=== PATIENT | female | born 1985 | race Hispanic/Latino ===

== ENCOUNTER 2022-01-15 08:38 | Inpatient (IN) | payer OTHER ==
[~2022-01-15] VITALS: Ht 162.6 cm; Wt 83.9 kg
[2022-01-15 09:25] LABS: APPEARANCE,URINE CLEAR (CLEAR); BILIRUBIN,URINE NEGATIVE (NEGATIVE); COLOR,URINE YELLOW (YELLOW); GLUCOSE, URINE (UA) NEGATIVE (NEGATIVE); KETONES,URINE NEGATIVE (NEGATIVE); LEUKOCYTE ESTERASE ,URINE TRACE (NEGATIVE); NITRATE,URINE NEGATIVE (NEGATIVE); OCCULT BLOOD,URINE NEGATIVE (NEGATIVE); PROTEIN,URINE NEGATIVE (NEGATIVE); UROBILINOGEN,URINE 0.2 mg/dL (0.2-1.0)
[2022-01-15] MEDS ORDERED: LACTATED RINGERS 1000ML IV SCH (09:30)
[2022-01-15 09:38] LABS: AMPHET/METH SCREEN,URINE NEGATIVE (NEGATIVE); BARBITURATE SCREEN, URINE NEGATIVE (NEGATIVE); BENZODIAZEPINES SCREEN,URINE NEGATIVE (NEGATIVE); CANNABINOID SCREEN,URINE NEGATIVE (NEGATIVE); COCAINE SCREEN,URINE NEGATIVE (NEGATIVE); PHENCYCLIDINE SCREEN,URINE NEGATIVE (NEGATIVE)
[2022-01-15 09:45] LABS: BACTERIA,URINE Rare /HPF (None Seen); RBC,URINE 0-1 /HPF (0-1); SQUAMOUS EPITHELIAL CELL,UR Rare /HPF (0-2)
[2022-01-15 09:54] LABS: HEMATOCRIT 34.9 % (36-48); MEAN CORPUSCULAR HEMOGLOBIN 30.5 pg (27.0-33.0); MEAN CORPUSCULAR HGB CONC 34.1 g/dL (32.0-36.0); MEAN CORPUSCULAR VOLUME 89.5 fL (79-99); RED BLOOD CELL COUNT(AUTO) 3.9 MIL/uL (4.00-5.50); RED CELL DISTRIBUTION WIDTH 14.3 % (11.0-15.5); WHITE BLOOD COUNT (AUTO) 7.5 K/uL (4.8-10.8)
[2022-01-15] MEDS ORDERED: LACTATED RINGERS 1000ML 1,000 ML IV PRN (10:00)
[2022-01-15 11:10] VITALS: BP 128/71
[2022-01-15] MEDS ORDERED: BUTORPHANOL TARTRATE 2 MG/ML IVP PRN (11:30)
[2022-01-15] MEDS ORDERED: AMPICILLIN 2GM+NS 100ML 100 ML IV SCH (11:30)
[2022-01-15] MEDS ORDERED: ROPIVACAINE 0.2% 100ML VIAL 100 ML EP SCH (11:30)
[2022-01-15] MEDS ORDERED: EPHEDRINE SULFATE 50 MG/ML AMPULE IVP PRN (11:30)
[2022-01-15] MEDS ORDERED: PROMETHAZINE HCL 25 MG/ML 1ML AMPULE IM PRN (11:30)
[2022-01-15] MEDS ORDERED: NALOXONE HCL 0.4 MG/1 ML ML IV PRN (11:30)
[2022-01-15] MEDS ORDERED: OXYTOCIN-LR 20 UNITS/1000 ML 1,000 ML IV SCH ×2 (11:30)
[2022-01-15] MEDS ORDERED: LACTATED RINGERS 500 ML 500 ML IV PRN (11:30)
[2022-01-15] MEDS ORDERED: METHYLERGONOVINE MALEATE 0.2 MG/1 ML ML ONE (14:14)
[2022-01-15] MEDS ORDERED: ACETAMINOPHEN WITH CODEINE 1 TAB TAB PO PRN (14:30)
[2022-01-15] MEDS ORDERED: DIPH,PERTUSS(ACELL),TET VAC/PF 0.5 ML VIAL IM PRN (14:30)
[2022-01-15] MEDS ORDERED: MEASLES/MUMPS/RUBELLA VACCINE, LIVE 0.5 ML/VIAL SQ PRN (14:30)
[2022-01-15] MEDS ORDERED: ACETAMINOPHEN 325 MG TAB PO PRN (14:30)
[2022-01-15] MEDS ORDERED: LANOLIN 30GM OINTMENT TP PRN (14:30)
[2022-01-15] MEDS ORDERED: WITCH HAZEL 1 PAD TP PRN (14:30)
[2022-01-15] MEDS: IBUPROFEN 600 MG TABLET PO PRN (15:11)
[2022-01-15 16:30] VITALS: BP 127/72
[2022-01-15] MEDS ORDERED: PREN-226 PO (17:44)
[2022-01-15] MEDS: AMPICILLIN 1GM+NS 50ML 50 ML IV SCH ×2 (19:00→23:00)
[2022-01-15 19:46] VITALS: BP 107/70
[2022-01-15] MEDS: DOCUSATE SODIUM 100 MG CAP PO SCH (20:52)
[2022-01-15 23:20] VITALS: BP 120/60
[2022-01-16] MEDS: AMPICILLIN 1GM+NS 50ML 50 ML IV SCH ×2 (03:00→03:17)
[2022-01-16 03:57] VITALS: BP 113/69
[2022-01-16 06:40] VITALS: BP 116/66
[2022-01-16] MEDS: IBUPROFEN 600 MG TABLET PO PRN (08:35)
[2022-01-16] MEDS: DOCUSATE SODIUM 100 MG CAP PO SCH (08:35)
[2022-01-16 09:07] LABS: RAPID PLASMA REAGIN NONREACTIVE (NONREACTIVE)
[2022-01-16 12:00] VITALS: BP 113/72
[2022-01-16 16:12] VITALS: BP 113/65
[2022-01-17 07:14] LABS: RUBELLA IGM ANTIBODY <20.0 AU/mL (0.0-19.9)
== END 2022-01-16 19:00 | disposition home or self-care (01) | DRG 807 ==
LOC: EDH 08:38 → OBSVTOIN 08:39 → LDH 08:39 → WSH 16:30
PROVIDERS: ADMIT Obstetrics & Gynecology; ATTEND Obstetrics & Gynecology
PROC: 10E0XZZ Delivery of Products of Conception, External Approach (ICD-10-PCS; principal; 2022-01-15)
PROC: 10907ZC Drainage of Amniotic Fluid, Therapeutic from Products of Conception, Via Natural or Artificial Opening (ICD-10-PCS; 2022-01-15)
DX: O76 Abnormality in fetal heart rate and rhythm complicating labor and delivery (principal); Z37.0 Single live birth; Z3A.39 39 weeks gestation of pregnancy
CPT/HCPCS: 36415; 76805; 80305; 81001; 85027; 86592; 86701; 86762; 86850; 86900; 86901; 87340; 87390; G0378; J0290; J0595; J2210; J2550; J2590; J7120